=== PATIENT | female | born 1990 | race Caucasian/White ===

== ENCOUNTER 2017-04-22 05:38 | Day surgery (SDC) | payer OTHER ==
[2017-04-22] VITALS (7 sets, daily range): BP systolic 115–127; BP diastolic 55–78; PULSE 79–95; TEMP 98.1–98.2
[~2017-04-22] VITALS: Ht 165.1 cm; Wt 91.9 kg
[2017-04-22] MEDS ORDERED: AMITRIPTYLINE H10 M1 PO (06:06)
[2017-04-22] MEDS ORDERED: LEXAPRO20 MG PO (06:06)
[2017-04-22] MEDS ORDERED: CATAPRES0.3 MG PO (06:07)
[2017-04-22] MEDS ORDERED: TENORMIN 5050 MG/TAB PO (06:07)
[2017-04-22] MEDS ORDERED: PRINIVIL20 MG PO (06:08)
[2017-04-22] MEDS ORDERED: IBU600 MG PO (09:27)
[2017-04-22] MEDS ORDERED: PERCOCET 325 MG1 TA2 PO (09:28)
[2017-04-22] MEDS ORDERED: METAMUCIL3.4 GM/Dos PO (10:21)
[2017-04-22] MEDS ORDERED: COLACE 100100 MG/CAP PO (10:21)
== END 2017-04-22 12:37 | disposition home or self-care (01) ==
LOC: SDCO 05:38
DX: A63.0 Anogenital (venereal) warts (principal); I10 Essential (primary) hypertension
CPT/HCPCS: J0690; J1100; J1885; J2175; J2270; J2405; J2704; J3010; J7120